=== PATIENT | female | born 1955 | race Caucasian/White ===

== ENCOUNTER → 2021-05-16 | Outpatient (CLI) | payer OTHER | END | disposition home or self-care (01) | LOC: LAB 15:05 | DX: Z11.1 Encounter for screening for respiratory tuberculosis (principal); M25.78 Osteophyte, vertebrae | CPT/HCPCS: 71046 ==

== ENCOUNTER 2022-04-03 00:20 | Emergency (ER) | payer BC, OTHER ==
[~2022-04-03] VITALS: Ht 170.2 cm; Wt 122.7 kg
[2022-04-03 00:25] VITALS: BP 180/91
== END 2022-04-03 02:27 | disposition home or self-care (01) ==
LOC: ER 00:20
DX: M79.671 Pain in right foot (principal); Z98.890 Other specified postprocedural states
CPT/HCPCS: 73630; 99283

== ENCOUNTER 2022-06-21 06:30 | Emergency (ER) | payer BC ==
[~2022-06-21] VITALS: Ht 170.2 cm; Wt 122.7 kg
[2022-06-21 07:27] VITALS: BP 179/91
[2022-06-21] MEDS: normal saline 1000ML IV soln IVB ONE ×2 (08:10→09:01)
[2022-06-21] MEDS ORDERED: ketorolac trometh. 30mg/ml inj. IV ONE (08:10)
[2022-06-21] MEDS ORDERED: ondansetron/PF 4mg/2ml inj IV ONE (08:10)
[2022-06-21 08:11] LABS: CLARITY,URINE CLEAR (Clear); COLOR,URINE YELLOW (Yellow); GLUCOSE, URINE NEGATIVE (Neg); KETONES,URINE NEGATIVE (Neg); LEUKOCYTE ESTERASE ,URINE NEGATIVE (Neg); NITRITES, URINE NEGATIVE (Neg); OCCULT BLOOD,URINE TRACE-INTACT (Neg); PROTEIN,URINE NEGATIVE (Neg); URINE HCG NEGATIVE (NEG); UROBILINOGEN,URINE 0.2 E.U/dL (0.2-1.0)
[2022-06-21 08:14] LABS: UA COLLECTION TYPE CLN CATCH MIDSTREAM
[2022-06-21 08:20] LABS: BACTERIA,URINE FEW /HPF (Neg); MUCUS STRANDS NONE SEEN /LPF (Neg); RBC,URINE 0-2 /HPF (0-2); SQUAMOUS EPITHELIAL CELL,UR FEW /LPF (FEW); WBC,URINE 0-4 /HPF (0-4)
[2022-06-21] MEDS ORDERED: ondansetron 4mg rapidly disintigrating tab PO ONE (09:05)
--- NOTE | 2022-06-21 09:43 | NUR ---
PT DECLINED IV FLUID AND REQUESTED JUST THE TORADOL AND ZOFRAN. DR MARINELLI NOTIFIED, TORADOL WAS GIVEN IM PER DR MARINELLI AND ZOFRAN WAS CHANGED TO ODT. PT HAS NOW REQUESTED THE IV FLUIDS. DR MARINELLI NOTIFIED.
[2022-06-21 10:23] LABS: BASOPHILS % (AUTO) 0.6 % (0-1); EOSINOPHILS # (AUTO) 0.2 X10'3 (0-0.9); EOSINOPHILS % (AUTO) 2.8 % (0-6); HEMATOCRIT 38.9 % (35.0-45.0); HEMOGLOBIN 12.8 g/dl (12.0-16.0); LYMPHOCYTES # (AUTO) 1.9 X10'3 (1.1-4.8); LYMPHOCYTES % (AUTO) 27.9 % (21-51); MEAN CORPUSCULAR HEMOGLOBIN 26.1 PG (27.0-31.0); MEAN CORPUSCULAR HGB CONC 32.9 g/dL (33.0-36.5); MEAN CORPUSCULAR VOLUME 79.6 FL (78-98); MEAN PLATELET VOLUME 8.6 FL (7.4-10.4); MONOCYTES # (AUTO) 0.6 X10'3 (0-0.9); MONOCYTES % (AUTO) 9.6 % (2-12); NEUTROPHILS % (AUTO) 59.1 % (42-75); PLATELET COUNT 256 X10'3 (140-440); RED BLOOD COUNT 4.89 X10'6 (4.20-5.60); RED CELL DISTRIBUTION WIDTH 15.5 % (11.5-14.5); WHITE BLOOD COUNT 6.7 X10'3 (4.5-11.0)
[2022-06-21 10:45] LABS: BLOOD UREA NITROGEN 21 MG/DL (7-18); BUN/CREATININE RATIO 26.6 (6.6-38.0); CHLORIDE 100 MMOL/L (99-107); CREATININE 0.79 MG/DL (0.40-0.90); GLUCOSE 132 MG/DL (70-104); POTASSIUM 4.3 MMOL/L (3.5-5.1); SODIUM 137 MMOL/L (135-145); eGFR 73 ML/MIN
[2022-06-21 10:51] LABS: ALANINE AMINOTRANSFERASE 69 U/L (12-78); ALBUMIN 4.1 G/DL (3.4-5.0); ALBUMIN/GLOBULIN RATIO 1.1 (1.1-1.5); ALKALINE PHOSPHATASE 118 IU/L (46-116); ANION GAP 11 (8-16); ASPARTATE AMINO TRANSFERASE 33 U/L (10-37); BILIRUBIN,TOTAL 0.6 MG/DL (0.1-1.0); TOTAL CARBON DIOXIDE 26.5 MMOL/L (24-32); TOTAL PROTEIN 7.8 G/DL (6.4-8.2)
== END 2022-06-21 11:24 | disposition home or self-care (01) ==
LOC: ER 06:30
DX: R10.84 Generalized abdominal pain (principal); R11.0 Nausea; Z98.890 Other specified postprocedural states; Z88.2 Allergy status to sulfonamides; Z88.1 Allergy status to other antibiotic agents
CPT/HCPCS: 36415; 74176; 80053; 81001; 81025; 85025; 96361; 96374; 99284; J1885; J7030

== ENCOUNTER 2022-10-09 12:23 | Emergency (ER) | payer BC, MEDICARE ==
[~2022-10-09] VITALS: Ht 170.2 cm; Wt 127.3 kg
[2022-10-09 13:02] VITALS: BP 151/88
[2022-10-09 13:44] LABS: BASOPHILS % (AUTO) 0.4 % (0-1); EOSINOPHILS % (AUTO) 0.4 % (0-6); HEMATOCRIT 39.6 % (35.0-45.0); HEMOGLOBIN 12.8 g/dl (12.0-16.0); LYMPHOCYTES # (AUTO) 1.6 X10'3 (1.1-4.8); MEAN CORPUSCULAR HEMOGLOBIN 25.9 PG (27.0-31.0); MEAN CORPUSCULAR HGB CONC 32.4 g/dL (33.0-36.5); MEAN CORPUSCULAR VOLUME 79.8 FL (78-98); MEAN PLATELET VOLUME 8.7 FL (7.4-10.4); MONOCYTES # (AUTO) 0.6 X10'3 (0-0.9); MONOCYTES % (AUTO) 15.6 % (2-12); NEUTROPHILS # (AUTO) 1.8 X10'3 (1.8-7.7); NEUTROPHILS % (AUTO) 44.6 % (42-75); PLATELET COUNT 222 X10'3 (140-440); RED BLOOD COUNT 4.96 X10'6 (4.20-5.60); RED CELL DISTRIBUTION WIDTH 15.4 % (11.5-14.5)
[2022-10-09 14:02] LABS: ALANINE AMINOTRANSFERASE 51 U/L (12-78); ALBUMIN 3.6 G/DL (3.4-5.0); ALKALINE PHOSPHATASE 102 IU/L (46-116); ANION GAP 10 (8-16); ASPARTATE AMINO TRANSFERASE 38 U/L (10-37); BILIRUBIN,TOTAL 0.4 MG/DL (0.1-1.0); BLOOD UREA NITROGEN 16 MG/DL (7-18); BUN/CREATININE RATIO 18.4 (6.6-38.0); CALCIUM 8.8 MG/DL (8.5-10.1); CHLORIDE 102 MMOL/L (99-107); CREATININE 0.87 MG/DL (0.40-0.90); GLUCOSE 189 MG/DL (70-104); POTASSIUM 3.3 MMOL/L (3.5-5.1); SODIUM 138 MMOL/L (135-145); TOTAL CARBON DIOXIDE 26.3 MMOL/L (24-32); TOTAL PROTEIN 7.3 G/DL (6.4-8.2); eGFR 65 ML/MIN
[2022-10-09] MEDS ORDERED: ipratropium/albuterol 3ml nebule NEB ONE (14:05)
[2022-10-09] MEDS ORDERED: dexamethasone sod phosphate 10mg/ml inj PO STA (14:12)
[2022-10-09] MEDS ORDERED: ALBU90AE INH (14:52)
== END 2022-10-09 15:20 | disposition home or self-care (01) ==
LOC: ER 12:23
DX: J40 Bronchitis, not specified as acute or chronic (principal); Z88.2 Allergy status to sulfonamides; Z88.1 Allergy status to other antibiotic agents; Z79.899 Other long term (current) drug therapy
CPT/HCPCS: 71045; 80053; 83880; 84484; 85025; 93005; 94640; 99285; J1100; 94760

== ENCOUNTER 2023-10-21 09:42 | Outpatient (CLI) | payer BC ==
[~2023-10-21 09:42] MED LIST: ALBU90AE INH
== END 2023-10-21 23:59 | disposition home or self-care (01) ==
LOC: RAD 09:42
PROVIDERS: ATTEND Family Medicine
DX: M16.11 Unilateral primary osteoarthritis, right hip (principal); M51.37 Other intervertebral disc degeneration, lumbosacral region
CPT/HCPCS: 72110; 73502

== ENCOUNTER 2024-02-23 13:49 | Outpatient (CLI) | payer BC | END 2024-02-23 23:59 | disposition home or self-care (01) | LOC: MRI 13:49 | PROVIDERS: ATTEND Orthopaedic Surgery | DX: S73.191A Other sprain of right hip, initial encounter (principal); M16.11 Unilateral primary osteoarthritis, right hip; M25.451 Effusion, right hip; R60.9 Edema, unspecified; X58.XXXA Exposure to other specified factors, initial encounter; Y93.89 Activity, other specified; Y92.89 Other specified places as the place of occurrence of the external cause; Y99.8 Other external cause status | CPT/HCPCS: 73721 ==

== ENCOUNTER 2024-04-29 21:13 | Emergency (ER) | payer BC ==
[~2024-04-29] VITALS: Ht 170.2 cm; Wt 124.0 kg
[2024-04-29 21:17] VITALS: BP 158/76; PULSE 76; RESP 18; TEMP 98.6; O2SAT 96
== END 2024-04-29 21:36 | disposition home or self-care (01) ==
LOC: ER 21:13
DX: K12.1 Other forms of stomatitis (principal); Z88.2 Allergy status to sulfonamides; Z79.899 Other long term (current) drug therapy; Z98.890 Other specified postprocedural states
CPT/HCPCS: 99282

== ENCOUNTER 2024-10-26 08:59 | Outpatient (CLI) | payer BC ==
[2024-10-26 09:27] LABS: BILIRUBIN,URINE NEGATIVE (Neg); CLARITY,URINE CLEAR (Clear); COLOR,URINE YELLOW (Yellow); GLUCOSE, URINE NEGATIVE (Neg); KETONES,URINE NEGATIVE (Neg); LEUKOCYTE ESTERASE ,URINE NEGATIVE (Neg); NITRITES, URINE NEGATIVE (Neg); OCCULT BLOOD,URINE NEGATIVE (Neg); PROTEIN,URINE NEGATIVE (Neg); UA COLLECTION TYPE CLN CATCH MIDSTREAM; UROBILINOGEN,URINE 0.2 E.U/dL (0.2-1.0)
[2024-10-26 09:29] LABS: BASOPHILS % (AUTO) 0.6 % (0-1); EOSINOPHILS # (AUTO) 0.2 X10'3 (0-0.9); EOSINOPHILS % (AUTO) 2.4 % (0-6); HEMOGLOBIN 12.9 g/dl (12.0-16.0); LYMPHOCYTES # (AUTO) 1.7 X10'3 (1.1-4.8); LYMPHOCYTES % (AUTO) 24.2 % (21-51); MEAN CORPUSCULAR HEMOGLOBIN 26.7 PG (27.0-31.0); MEAN CORPUSCULAR VOLUME 80.8 FL (78-98); MEAN PLATELET VOLUME 8.3 FL (7.4-10.4); MONOCYTES # (AUTO) 0.7 X10'3 (0-0.9); MONOCYTES % (AUTO) 9.1 % (2-12); NEUTROPHILS # (AUTO) 4.6 X10'3 (1.8-7.7); NEUTROPHILS % (AUTO) 63.7 % (42-75); PLATELET COUNT 290 X10'3 (140-440); RED BLOOD COUNT 4.83 X10'6 (4.20-5.60); RED CELL DISTRIBUTION WIDTH 15.8 % (11.5-14.5); WHITE BLOOD COUNT 7.2 X10'3 (4.5-11.0)
[2024-10-26 09:50] LABS: ALANINE AMINOTRANSFERASE 34 U/L (12-78); ALBUMIN 3.5 G/DL (3.4-5.0); ALKALINE PHOSPHATASE 113 IU/L (46-116); ANION GAP 7 (8-16); ASPARTATE AMINO TRANSFERASE 23 U/L (10-37); BILIRUBIN,TOTAL 0.5 MG/DL (0.1-1.0); BLOOD UREA NITROGEN 17 MG/DL (7-18); BUN/CREATININE RATIO 22.1 (10.0-20.0); CALCIUM 8.8 MG/DL (8.5-10.1); CHLORIDE 107 MMOL/L (99-107); CHOL/HDL RATIO 3.1 (0.00-4.99); CHOLESTEROL 214 MG/DL (0-200); CREATININE 0.77 MG/DL (0.40-0.90); GLUCOSE 145 MG/DL (70-104); HDL CHOLESTEROL 69 MG/DL (35-60); LDL CHOLESTEROL 123 MG/DL (50-100); POTASSIUM 4.3 MMOL/L (3.5-5.1); SODIUM 142 MMOL/L (135-145); THYROID STIMULATING HORMONE 1.27 ulU/ml (0.34-4.50); TOTAL CARBON DIOXIDE 28.1 MMOL/L (24-32); TRIGLYCERIDES 64 MG/DL (20-135); eGFR 75 ML/MIN
[2024-10-26 09:54] LABS: HEMOGLOBIN A1C 6.4 % (4.5-6.2)
== END 2024-10-26 23:59 | disposition home or self-care (01) ==
LOC: LAB 08:59
PROVIDERS: ATTEND Family Medicine
DX: Z00.00 Encounter for general adult medical examination without abnormal findings (principal)
CPT/HCPCS: 36415; 80053; 80061; 81003; 83036; 84443; 85025

== ENCOUNTER 2025-03-20 10:22 | Outpatient (CLI) | payer BC ==
--- NOTE | 2025-03-20 11:34 | RADIOLOGY REPORT ---
Exam: US ULTRASOUND OF ABDOMEN Date: 03/20/2025 10:47 AM Clinical History: OTHER ABDOMINAL HERNIA WITH OBSTRUCTION, WITHOUT CHAPITO Comparison: None Technique: Targeted sonographic evaluation of the soft tissues of the right umbilical region was obtained utiliz ing grayscale and color Doppler imaging. Findings: There is no evidence for drainable collection. There is no evidence for solid or cystic mass in the site. No vascular abnormalities identified at this site. IMPRESSION: No definite sonographic abnormality is identified in the soft tissues of the right umbilical region.
== END 2025-03-20 23:59 | disposition home or self-care (01) ==
LOC: RAD 10:22
PROVIDERS: ATTEND Family Medicine
DX: K45.0 Other specified abdominal hernia with obstruction, without gangrene (principal)
CPT/HCPCS: 76857

== ENCOUNTER 2025-04-01 06:37 | Outpatient (CLI) | payer BC ==
[2025-04-01 07:01] LABS: BASOPHILS % (AUTO) 0.6 % (0-1); EOSINOPHILS # (AUTO) 0.2 X10'3 (0-0.9); EOSINOPHILS % (AUTO) 2.9 % (0-6); HEMATOCRIT 38.7 % (35.0-45.0); HEMOGLOBIN 12.9 g/dl (12.0-16.0); LYMPHOCYTES # (AUTO) 2.6 X10'3 (1.1-4.8); LYMPHOCYTES % (AUTO) 35.2 % (21-51); MEAN CORPUSCULAR HEMOGLOBIN 26.1 PG (27.0-31.0); MEAN CORPUSCULAR HGB CONC 33.3 g/dL (33.0-36.5); MEAN CORPUSCULAR VOLUME 78.2 FL (78-98); MEAN PLATELET VOLUME 8.3 FL (7.4-10.4); MONOCYTES # (AUTO) 0.8 X10'3 (0-0.9); MONOCYTES % (AUTO) 10.9 % (2-12); NEUTROPHILS # (AUTO) 3.7 X10'3 (1.8-7.7); NEUTROPHILS % (AUTO) 50.4 % (42-75); PLATELET COUNT 263 X10'3 (140-440); RED BLOOD COUNT 4.95 X10'6 (4.20-5.60); RED CELL DISTRIBUTION WIDTH 15.9 % (11.5-14.5); WHITE BLOOD COUNT 7.4 X10'3 (4.5-11.0)
[2025-04-01 07:20] LABS: APTT 26 SECONDS (22-32); PROTHROMBIN TIME 9.9 SECONDS (9.0-12.0)
[2025-04-01 07:21] LABS: ALANINE AMINOTRANSFERASE 36 U/L (12-78); ALBUMIN 3.8 G/DL (3.4-5.0); ALKALINE PHOSPHATASE 130 IU/L (46-116); ANION GAP 9 (8-16); ASPARTATE AMINO TRANSFERASE 28 U/L (10-37); BILIRUBIN,TOTAL 0.5 MG/DL (0.1-1.0); BLOOD UREA NITROGEN 24 MG/DL (7-18); BUN/CREATININE RATIO 26.7 (10.0-20.0); C-REACTIVE PROTEIN 0.08 MG/DL (0.0-0.5); CALCIUM 8.9 MG/DL (8.5-10.1); CHLORIDE 102 MMOL/L (99-107); GLUCOSE 142 MG/DL (70-104); POTASSIUM 4.2 MMOL/L (3.5-5.1); SODIUM 137 MMOL/L (135-145); TOTAL CARBON DIOXIDE 26.4 MMOL/L (24-32); TOTAL PROTEIN 7.7 G/DL (6.4-8.2); eGFR 62 ML/MIN
== END 2025-04-01 23:59 | disposition home or self-care (01) ==
LOC: LAB 06:37
DX: Z01.818 Encounter for other preprocedural examination (principal); M16.11 Unilateral primary osteoarthritis, right hip
CPT/HCPCS: 36415; 80053; 85025; 85610; 85651; 85730; 86140

== ENCOUNTER 2025-04-06 08:03 | Outpatient (CLI) | payer BC ==
--- NOTE | 2025-04-06 15:40 | RADIOLOGY REPORT ---
EXAM: NM NM BONE SCAN History: PRESENCE OF RIGHT ARTIFICIAL KNEE JOINT Comparison Study: None TECHNIQUE: Immediately after the radiopharmaceutical, flow images of the were acquired, followed by blood pool images of the bilateral knees . Then, approximately 3 hours later, additional im ages of the were acquired. Anterior and posterior whole body images were also acquired. CONTRAST MEDIA AND RADIOPHARMACEUTICALS: FINDINGS: Flow images demonstrate no abnormal focal radiotracer uptake. Blood pool images demonstrate no areas of hyperemia. Delayed images demonstrate increased radiotracer uptake along bilateral shoulders, sacroiliac joints, knees, and feet favored to reflect degenerative changes. Physiologic radiotracer distribution in kidneys and urinary bladder. IMPRESSION: 1. Normal 3 phase bone scan. No scintigraphic evidence to suggest prosthetic loosening.
== END 2025-04-06 23:59 | disposition home or self-care (01) ==
LOC: NM 08:03
PROVIDERS: ATTEND Physician Assistant
DX: M17.0 Bilateral primary osteoarthritis of knee (principal); Z96.651 Presence of right artificial knee joint; M19.071 Primary osteoarthritis, right ankle and foot; M19.072 Primary osteoarthritis, left ankle and foot
CPT/HCPCS: 78315; A9503